=== PATIENT | female | born 1980 | race Caucasian/White ===

== ENCOUNTER → 2016-10-20 | Outpatient (CLI) | payer OTHER ==
[~2016-10-20] MED LIST: ALBUTEROL17 GM INH; ASPIRIN325 M1 PO; B COMPLEX1 CA1 PO; BACTRIM DS TABL1 TA1 PO; BENADRYL25 M1 PO; BENZONATATE PO; BIOTIN; BUSPAR PO; CLA1000 MG PO; DICLOFENAC PO; DIMETAPP120 ML PO; ETODOLAC PO; KEFLEX 500MG PO; KETOPROFEN PO; LAMICTAL PO; LAMICTAL150 MG PO; LAMOTRIGINE PO; LISINOPRIL20 MG PO; MACROBID100 MG; MEDROL DOSEPAK4 MG DOB; MEDROL PO; MELATONIN3 MG PO; METHYLPHENIDATE PO; MOTRIN600 M1; NAPROSYN PO; NEURONTIN300 MG PO; PREDNISONE PO; PROMETHAZINE D118 ML PO; PYRIDIUM PO; QUETIAPINE PO; RISPERDAL2 MG; RITALIN PO; RITALIN10 MG PO; SENNA LAXATIVE8.6 M1; SEROQUEL25 MG; ST. JOHN'S WOR150 M1 PO; VOLTAREN75 MG PO; ZITHROMAX PO
== END | disposition home or self-care (01) ==
LOC: CLAB 20:00
DX: F31.81 Bipolar II disorder (principal)
CPT/HCPCS: 36415; 80178

== ENCOUNTER → 2016-11-03 | Outpatient (CLI) | payer OTHER ==
--- NOTE | ~2016-11-03 | US24 ---
[facility] A Service of [facility] RADIOLOGY TEXT RESULTS PATIENT: GASTON LOCATION: [facility] : 78 UNIT #: [id number] AGE: [address]: Walt Aragon MD SEX: F ORDER DR: [id number] [facility] [address] [place], [place] [address] [id number] O MR#: [id number] Acc #: [id number] NAME: FELDMANOctober : 1980 SEX: F STUDY DATE/TIME: 11/03/2016 10:05 UNIT: [facility] ROOM: STUDY DESCRIPTION: US Breast Unilateral Attending Physician: Walt Aragon M.D. Ordering Physician: Walt Aragon M.D. Primary Care Physician: Walt Aragon M.D. MEDICAL IMAGING REPORT This report is preliminary unless electronic signature is present EXAM RIGHT breast ultrasound INDICATIONS Palpable pea-sized mass in the upper outer quadrant right breast/right axilla. 1-month duration. FINDINGS Patino-scale and color Doppler ultrasound of the right breast was performed. The exam was performed by the restaurant recruiter and by myself. Please refer to the diagnostic mammogram for details, however, the abnormality appears to represent a small sebaceous cyst. This is contiguous with this scan. The area measures 0.8 x 0.5 x 0.9 cm. No suspicious mass or lesions identified. IMPRESSION Benign right breast ultrasound. Small sebaceous cyst correlates to the palpable abnormality. BIRADS: 2 - benign findings Dictated by... Jonathan Calderon M.D. THIS IS AN ELECTRONICALLY VERIFIED REPORT Jonathan Calderon M.D. at 11/03/2016 12:09 PM PANFILO/norbert TD: 11/03/2016 11:35 [facility] A Service of [facility] RADIOLOGY TEXT RESULTS PATIENT: GASTON LOCATION: [facility] : 78 UNIT #: [id number] AGE: [address]: Walt Aragon MD SEX: F ORDER DR: JOB #: [id number] MEDICAL IMAGING REPORT Page 1 of 1 COPY
--- NOTE | ~2016-11-03 | MY6 ---
[facility] A Service of [facility] RADIOLOGY TEXT RESULTS PATIENT: GASTON LOCATION: [facility] : 78 UNIT #: [id number] AGE: [address]: Walt Aragon MD SEX: F ORDER DR: [id number] [place] [id number] [facility]. [place], [place] [address] [id number] O MR#: [id number] Acc #: [id number] NAME: GASTON OCTOB[birth year] : 1980 SEX: F STUDY DATE/TIME: 11/03/2016 9:47 UNIT: [facility] ROOM: STUDY DESCRIPTION: MY Mammogram Dx Dig [place] Attending Physician: Walt Aragon M.D. Ordering Physician: Walt Aragon M.D. Primary Care Physician: Walt Aragon M.D. MEDICAL IMAGING REPORT This report is preliminary unless electronic signature is present EXAM Bilateral digital diagnostic mammogram and diagnostic right breast ultrasound. CLINICAL HISTORY 36-year-old female with a palpable pea-sized nodule in the right axilla. No personal history of breast cancer. Patient has a positive family history of breast cancer. FINDINGS MAMMOGRAM: CC and MLO views of both breasts were obtained. Right axillary tail, ML, and exaggerated CC views were also obtained. The background breast parenchyma consists of scattered fibroglandular densities. In the site of the patient's palpable abnormality, there is a small well-circumscribed nodule measuring 3-4 mm. No microcalcifications or architectural distortion. This small nodule is immediately beneath the skin and may actually be part of the skin. The left breast is negative. RIGHT BREAST ULTRASOUND: Patino-scale and color Doppler ultrasound of the right breast was performed. There is a complex cystic collection associated with the skin compatible with a sebaceous cyst. This measures up to 0.6 x 0.5 x 0.3 cm. This is compatible with a small sebaceous cyst. IMPRESSION Benign mammogram and right breast ultrasound. RECOMMENDATIONS Clinical followup. Patients over the age of 40 are entered into a reminder system with target due date for the next mammogram. A result letter will also be sent to the patient. [facility] A Service of [facility] RADIOLOGY TEXT RESULTS PATIENT: GASTON LOCATION: [facility] : 78 UNIT #: [id number] AGE: [address]: Walt Aragon MD SEX: F ORDER DR: BIRADS: 2 Benign finding. Dictated by... Jonathan Calderon M.D. THIS IS AN ELECTRONICALLY VERIFIED REPORT Jonathan Calderon M.D. at 11/03/2016 4:25 PM PANFILO/margareth TD: 11/03/2016 15:48 JOB #: [id number] MEDICAL IMAGING REPORT Page 1 of 1 COPY
== END | disposition home or self-care (01) ==
LOC: CMAM 09:16
DX: R22.31 Localized swelling, mass and lump, right upper limb (principal); N60.81 Other benign mammary dysplasias of right breast
CPT/HCPCS: 76641; G0204